=== PATIENT | male | born 1990 | race Caucasian/White ===

== ENCOUNTER 2019-09-29 15:08 | Emergency (ER) | payer SELFPAY ==
[~2019-09-29] VITALS: Ht 175 cm; Wt 90.7 kg
--- OUTSIDE RECORDS SUMMARY | 2019-09-29 15:12 | XMS REPORT | Continuity of Care Document ---
Author Author [facility] Organization [employer] Address Unknown Phone Unavailable Allergies There is no data. Medications There is no data. Problems There is no data. Procedures There is no data. Results There is no data. Encounters ACCT No. Visit Date/Time Discharge Status Pt. Type Provider Facility Loc./Unit Complaint [id number] 09/07/2019 11:15:00 09/07/2019 23:59: 59 CLS Outpatient PARAS ORALIA CAROLYNSaleem [facility] [id number] 10/11/2013 13:55:00 014 23:59:59 CLS Outpatient [id number] 09/29/2019 15:10:[address] Emergency ROSENDO GANDHI, ALISON Anderson Via [facility] ER N/V/D/FEVER
--- NOTE | 2019-09-29 15:41 | ED General ---
General Chief Complaint: Fever-Adult/Adol Stated Complaint: N/V/D/FEVER Source of Information: Patient Exam Limitations: No Limitations History of Present Illness Date Seen by Provider: Sep 29, 2019 Time Seen by Provider: 15:37 Initial Comments To ER with nausea vomiting diarrhea fever. This began Monday evening 09/27/19 at about 5 PM after eating [employer]. He urinated quite a bit that night and then awakened the next morning to notice some abdominal cramping and diarrhea. He developed a fever yesterday up to 101 and had 2 episodes of bloody stools today. He has some periumbilical abdominal pain but reports that is fairly mild. No cough no shortness of breath and no exposure to known coronavirus patients. How ever he is at the [place] [facility] [employer] [facility] in [place] and needs a COVID swab before he can return. Timing/Duration: 2-3 Days Severity: Moderate Associated Systoms: Fever/Chills Allergies and Home Medications Allergies Coded Allergies: No Known Drug Allergies (Unverified , 09/29/19) Patient Home Medication List Home Medication List Reviewed: Yes Review of Systems Review of Systems Constitutional: see HPI, chills, fever EENTM: see HPI Respiratory: see HPI; No cough, No dyspnea on exertion Gastrointestinal: abdominal pain, diarrhea Genitourinary: no symptoms reported Musculoskeletal: no symptoms reported Skin: no symptoms reported Psychiatric/Neurological: No Symptoms Reported Past Oibcfgk-Lcthpr-Gbrbgw Hx Patient Social History Recent Foreign Travel: No Contact w/Someone Who Travel: No Physical Exam Vital Signs Vital Signs - First Documented 09/29/19 15:25 Temp 38.3 Pulse 126 Resp 16 B/P (MAP) 147/88 (107) Pulse Ox 98 O2 Delivery Room Air Capillary Refill : Height, Weight, BMI Height: '" Weight: lbs. oz. kg; BMI Method: General Appearance: No Apparent Distress, WD/WN Eyes: Bilateral Eye Normal Inspection, Bilateral Eye PERRL, Bilateral Eye EOMI Neck: Full Range of Motion, Normal Inspection Respiratory: No Accessory Muscle Use, No Respiratory Distress Cardiovascular: Normal Peripheral Pulses, Tachycardia (rate of 1:15 to 120) Gastrointestinal: Normal Bowel Sounds, Non Tender (Minimal periumbilical tenderness), Soft Extremity: Normal Capillary Refill, Normal Inspection Neurologic/Psychiatric: Alert, Oriented x3 Skin: Normal Color, Warm/Dry Progress/Results/Core Measures Suspected Sepsis SIRS Temperature: Pulse: Respiratory Rate: Laboratory Tests 09/29/19 15:35: White Blood Count 7.2 Blood Pressure / Mean: Laboratory Tests 09/29/19 15:35: Creatinine 1.18, Platelet Count 182, Total Bilirubin 0.6 Results/Orders Lab Results Laboratory Tests Test 09/29/19 15:35 Range/Units White Blood Count 7.2 4.3-11.0 10^3/uL Red Blood Count 5.33 4.35-5.85 10^6/uL Hemoglobin 15.4 13.3-17.7 G/DL Hematocrit 45 40-54 % Mean Corpuscular Volume 85 80-99 FL Mean Corpuscular Hemoglobin 29 25-34 PG Mean Corpuscular Hemoglobin Concent 34 32-36 G/DL Red Cell Distribution Width 13.1 10.0-14.5 % Platelet Count 182 130-400 10^3/uL Mean Platelet Volume 10.5 H 7.4-10.4 FL Neutrophils (%) (Auto) 82 H 42-75 % Lymphocytes (%) (Auto) 11 L 12-44 % Monocytes (%) (Auto) 6 0-12 % Eosinophils (%) (Auto) 1 0-10 % Basophils (%) (Auto) 0 0-10 % Neutrophils # (Auto) 5.9 1.8-7.8 X 10^3 Lymphocytes # (Auto) 0.8 L 1.0-4.0 X 10^3 Monocytes # (Auto) 0.5 0.0-1.0 X 10^3 Eosinophils # (Auto) 0.1 0.0-0.3 10^3/uL Basophils # (Auto) 0.0 0.0-0.1 10^3/uL Sodium Level 138 135-145 MMOL/L Potassium Level 3.8 3.6-5.0 MMOL/L Chloride Level 107 98-107 MMOL/L Carbon Dioxide Level 21 21-32 MMOL/L Anion Gap 10 5-14 MMOL/L Blood Urea Nitrogen 13 7-18 MG/DL Creatinine 1.18 0.60-1.30 MG/DL Estimat Glomerular Filtration Rate > 60 BUN/Creatinine Ratio 11 Glucose Level 148 H 70-105 MG/DL Calcium Level 9.0 8.5-10.1 MG/DL Corrected Calcium 8.8 8.5-10.1 MG/DL Total Bilirubin 0.6 0.1-1.0 MG/DL Aspartate Amino Transf (AST/SGOT) 78 H 5-34 U/L Alanine Aminotransferase (ALT/SGPT) 48 0-55 U/L Alkaline Phosphatase 78 40-136 U/L Total Protein 7.3 6.4-8.2 GM/DL Albumin 4.3 3.2-4.5 GM/DL My Orders Orders - PAL JENNINGS APRN Ibuprofen Tablet (Motrin Tablet) (09/29/19 15:45) Acetaminophen Tablet (Tylenol Tablet) (09/29/19 15:45) Lactated Ringers (Lr 1000 Ml Iv Solution (09/29/19 15:45) Coronavirus Sars-Cov-2 So 2018 (09/29/19 15:36) Cbc With Automated Diff (09/29/19 15:36) Comprehensive Metabolic Panel (09/29/19 15:36) Ed Iv/Invasive Line Start (09/29/19 15:36) Ua Culture If Indicated (09/29/19 15:36) Ct Abdomen/Pelvis W (09/29/19 15:36) Iohexol Injection (Omnipaque 350 Mg/Ml 1 (09/29/19 15:45) Received Contrast (Hold Metformin- Contr (09/29/19 15:45) Sodium Chloride Flush (Catheter Flush Sy (09/29/19 15:45) Ns (Ivpb) (Sodium Chloride 0.9% Ivpb Bag (09/29/19 15:45) Stool Culture (09/29/19 15:58) Fentanyl Injection (Sublimaze Injection (09/29/19 17:00) Medications Given in ED Current Medications Medications Dose Ordered Sig/Chely Route Start Time Stop Time Status Last Admin Dose Admin Acetaminophen 1,000 mg ONCE ONCE PO 09/29/19 15:45 09/29/19 15:46 DC 09/29/19 15:48 1,000 MG Ibuprofen 800 mg ONCE ONCE PO 09/29/19 15:45 09/29/19 15:46 DC 09/29/19 15:48 800 MG Iohexol 100 ml ONCE ONCE IV 09/29/19 15:45 09/29/19 15:46 DC 09/29/19 16:07 100 ML Sodium Chloride 10 ml NEEDED PRN IV 09/29/19 15:45 09/29/19 16:07 10 ML Sodium Chloride 100 ml ONCE ONCE IV 09/29/19 15:45 09/29/19 15:46 DC 09/29/19 16:07 80 ML Vital Signs/I&O 09/29/19 15:25 Temp 38.3 Pulse 126 Resp 16 B/P (MAP) 147/88 (107) Pulse Ox 98 O2 Delivery Room Air Capillary Refill : Departure Communication (Admissions) 1709-spoke with Dr. Thornton, he agrees with plan of care. The CT mentions concern of a bleeding ulcer however patient's symptoms are not consistent with peptic ulcer disease, his hemoglobin is stable and his stools or bright red blood, more consistent with a lower GI source of bleeding. Infectious colitis is much more consistent with his symptoms then peptic ulcer disease. I'll put him on Zithromax, a culture of stool has been collected. We'll have him follow up with Dr. Thornton tomorrow in the clinic. Impression Primary Impression: Infectious colitis, enteritis and gastroenteritis Disposition: HOME, SELF-CARE Condition: Stable Departure-Patient Inst. Decision time for Depature: 15:39 Referrals: SUZIE THORNTON DO UNKNOWN (PCP) Primary Care Physician Patient Instructions: Diarrhea in Adolescents and Adults Add. Discharge Instructions: 1. Get some Pedialyte in order to stay hydrated, constantly be sipping on some of this. Tylenol and ibuprofen for fever control. Return to ER for any worsening. The coronavirus swab should be back within about 2-[address] Thornton tomorrow to make an appointment to be seen All discharge instructions reviewed with patient and/or family. Voiced understanding. Scripts Azithromycin (Azithromycin) 250 Mg Tablet 250 MG PO DAILY, #4 TAB 0 Refills Prov: PAL JENNINGS APRN 09/29/19 Work/School Note: Work Release Form Date Seen in the Emergency Department: Sep 29, 2019 Return to Work: Oct 04, 2019 Copy Copies To 1: SUZIE THORNTON PETER J APRN Sep 29, 2019 15:41
[2019-09-29 15:45] LABS: BASOPHILS % (AUTO) 0 % (0-10); EOSINOPHILS # (AUTO) 0.1 10^3/uL (0.0-0.3); EOSINOPHILS % (AUTO) 1 % (0-10); HEMATOCRIT 45 % (40-54); HEMOGLOBIN 15.4 G/DL (13.3-17.7); LYMPHOCYTES # (AUTO) 0.8 X 10^3 (1.0-4.0); LYMPHOCYTES % (AUTO) 11 % (12-44); MEAN CORPUSCULAR HEMOGLOBIN 29 PG (25-34); MEAN CORPUSCULAR HGB CONC 34 G/DL (32-36); MEAN CORPUSCULAR VOLUME 85 FL (80-99); MEAN PLATELET VOLUME 10.5 FL (7.4-10.4); MONOCYTES # (AUTO) 0.5 X 10^3 (0.0-1.0); MONOCYTES % (AUTO) 6 % (0-12); NEUTROPHILS # (AUTO) 5.9 X 10^3 (1.8-7.8); NEUTROPHILS % (AUTO) 82 % (42-75); PLATELET COUNT 182 10^3/uL (130-400); RED CELL DISTRIBUTION WIDTH 13.1 % (10.0-14.5); WHITE BLOOD COUNT 7.2 10^3/uL (4.3-11.0)
[2019-09-29] MEDS ORDERED: NS 100 ML (IVPB) BAG IV ONE (15:45)
[2019-09-29] MEDS ORDERED: IBUPROFEN 800 MG (MOTRIN) TAB PO ONE (15:45)
[2019-09-29] MEDS ORDERED: ACETAMINOPHEN 500 MG TAB (TYLENOL) PO ONE (15:45)
[2019-09-29] MEDS ORDERED: CATHETER FLUSH 10 ML SYR IV PRN (15:45)
[2019-09-29] MEDS ORDERED: IOHEXOL 350 MG/ML 100 ML (OMNIPAQUE 350) VIAL IV ONE (15:45)
[2019-09-29] MEDS ORDERED: LACTATED RINGERS 1,000 ML IV SCH (15:45)
[2019-09-29] MEDS ORDERED: HOLD METFORMIN - RECEIVED CONTRAST 20 ML VIAL IV SCH (15:45)
[2019-09-29 15:51] LABS: ALBUMIN 4.3 GM/DL (3.2-4.5); CHLORIDE 107 MMOL/L (98-107); POTASSIUM 3.8 MMOL/L (3.6-5.0); SODIUM 138 MMOL/L (135-145)
[2019-09-29 15:53] LABS: GLUCOSE 148 MG/DL (70-105)
[2019-09-29 15:54] LABS: TOTAL PROTEIN 7.3 GM/DL (6.4-8.2)
[2019-09-29 15:55] LABS: CARBON DIOXIDE 21 MMOL/L (21-32)
[2019-09-29 15:56] LABS: BILIRUBIN,TOTAL 0.6 MG/DL (0.1-1.0)
[2019-09-29 15:57] LABS: ALKALINE PHOSPHATASE 78 U/L (40-136); CREATININE SERUM 1.18 MG/DL (0.60-1.30); GFR ESTIMATED > 60
[2019-09-29 15:58] LABS: BUN/CREATININE RATIO 11
[2019-09-29 16:00] LABS: ALANINE AMINOTRANSFERASE 48 U/L (0-55)
--- NOTE | 2019-09-29 16:34 | Diagnostic Imaging Report ---
PROCEDURE: CT abdomen and pelvis with contrast. TECHNIQUE: Multiple contiguous axial images were obtained through the abdomen and pelvis after administration of intravenous contrast. Auto Exposure Controls were utilized during the CT exam to meet ALARA standards for radiation dose reduction. INDICATION: Bloody diarrhea, abdominal pain and fever x 2 days. CORRELATION STUDY: None. FINDINGS: LOWER THORAX: Clear. LIVER: Unremarkable. GALLBLADDER: Contracted maybe owing to recent meal. No definitive calcification or significant bile ductal dilatation. SPLEEN: Unremarkable. PANCREAS: Unremarkable. ADRENAL GLANDS: Unremarkable. KIDNEYS: Normal configuration. No calcification or obstruction. ABDOMINAL AORTA: Unremarkable, nonaneurysmal. A few small shotty subcentimeter central retroperitoneal and scattered mesenteric lymph nodes. GASTROINTESTINAL TRACT: Stomach is rather significantly distended with likely fluid with some additional gastric contents. There is nondependent gas at the duodenal bulb. Additionally, there is some adjacent ill-defined high density. This could potentially reflect ingested contents or vascular blush. The small bowel does demonstrate a few segment areas of suggested wall thickening; however, no findings to suggest underlying obstruction. Colon is largely collapsed. However, there does appear to be abnormal wall thickening through a large portion of the ascending and transverse colon into the proximal descending colon. The appendix is very slightly prominent but without definitive inflammatory change. No abdominal ascites and/or free air. URINARY BLADDER: Largely decompressed. REPRODUCTIVE: Prostate gland unremarkable. OSSEOUS STRUCTURES: No acute abnormality. OTHER: None. IMPRESSION: 1. Fairly significant thickening of a large portion of the colon from the level of the cecum through the descending colon. Some of this is owing to its decompressed state but does, however, suggest an underlying colitis. It could be either ischemic or inflammatory in nature. There may be mild associated enteritis. No obstruction. 2. Stomach is noted to be distended. There is nondependent gas at the duodenal bulb. There is question of abnormal contrast blush in this area. The possibility of bleeding ulceration is not excluded. Dictated by: Dictated on workstation # [id number]
[2019-09-29] MEDS ORDERED: fentaNYL INJECTION 100 MCG/2 ML AMP IVP ONE (17:00)
[2019-09-29] MEDS ORDERED: AZIT250T12 PO (17:10)
[2019-09-29] MEDS ORDERED: PANTOPRAZOLE 40 MG (PROTONIX) VIAL IV ONE (17:15)
[2019-09-29] MEDS ORDERED: AZITHROMYCIN 250 MG TAB (ZITHROMAX) PO ONE (17:16)
[2019-09-29 17:31] VITALS: BP 117/69
[2019-09-30] MEDS ORDERED: AZITHROMYCIN 250 MG TAB (ZITHROMAX) PO SCH (09:00)
== END 2019-09-29 17:31 | disposition home or self-care (01) ==
LOC: EDUNIT# 15:08 → ER 15:10
DX: A09 Infectious gastroenteritis and colitis, unspecified (principal)
CPT/HCPCS: 74177; 80053; 85025; 87015; 87045; 87046; 87077; 87181; 87899; 99284; U0002; 36415; 87635

== ENCOUNTER 2021-03-28 01:13 | Emergency (ER) | payer OTHER ==
[~2021-03-28] VITALS: Ht 175.3 cm; Wt 90.7 kg
[~2021-03-28 01:13] MED LIST: AZIT250T12 PO
[2021-03-28] MEDS ORDERED: TETANUS,DIPTH,PERTUSS P/F (BOOSTRIX) 0.5 ML VIAL IM ONE (01:45)
--- NOTE | 2021-03-28 01:49 | ED Fall/Injury ---
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 C/O WOUNDS TO BOTH HANDS, AND PAIN TO LEFT 4TH FINGER NO PARESTHESIAS OR MOTOR DEFICITS IS NOT SURE IF HE HIT HIS HEAD OR NOT, BUT DID NOT HAVE LOSS OF CONSCIOUSNESS, AND DOES NOT HAVE A HEADACHE NO NECK OR BACK PAIN NO LOWER EXTREMITY INJURIES NO CHEST OR ABDOMINAL PAIN LAST TETANUS VACCINE IS UNKNOWN PT HAS NOT HAD COVID OR FLU VACCINES PCP: DR. AGUILAR--HAS ONLY SEEN ONCE, OVER A YEAR AGO, TO ESTABLISH CARE. DID NOT HAVE A DR PRIOR TO THAT Allergies and Home Medications Allergies Coded Allergies: No Known Drug Allergies (Unverified , 09/29/19) Patient Home Medication List Home Medication List Reviewed: Yes Azithromycin (Azithromycin) 250 Mg Tablet, 250 MG PO DAILY Prescribed by: PAL JENNINGS on 09/29/19 1710 Review of Systems Review of Systems Constitutional: no symptoms reported Eyes: No Symptoms Reported Ears, Nose, Mouth, Throat: no symptoms reported Respiratory: no symptoms reported Cardiovascular: no symptoms reported Gastrointestinal: no symptoms reported Genitourinary: no symptoms reported Musculoskeletal: see HPI Skin: see HPI Psychiatric/Neurological: No Symptoms Reported Past Xpxwmze-Vucflm-Auybrb Hx Patient Social History Tobacco Use?: Yes Tobacco type used: Cigarettes Smoking Status: Current Someday Smoker Substance use?: No Alcohol Use?: Yes Alcohol Frequency: Once in a while Immunizations Up To Date Tetanus Booster (TDap): Unknown Past Medical History Surgeries: Yes Orthopedic, Tonsillectomy Respiratory: No Cardiac: No Neurological: No Genitourinary: No Gastrointestinal: No Musculoskeletal: No Endocrine: No HEENT: Yes (TONSILLECTOMY) Tonsilitis Cancer: No Psychosocial: No Integumentary: No Physical Exam Vital Signs Vital Signs - First Documented 03/28/21 01:29 Temp 36.5 Pulse 107 Resp 16 B/P (MAP) 145/108 (120) Pulse Ox 100 O2 Delivery Room Air Capillary Refill : Height, Weight, BMI Height: '" Weight: lbs. oz. kg; 29.00 BMI Method: General Appearance: WD/WN, no apparent distress HEENT: PERRL/EOMI, normal ENT inspection, TMs normal, pharynx normal, other (FAINT ERYTHEMA TO LEFT FOREHEAD, BUT NO SWELLING OR TENDERNESS) Neck: non-tender, full range of motion, supple, normal inspection Cardiovascular: normal peripheral pulses, regular rate, rhythm, no murmur Respiratory: chest non-tender, normal breath sounds, no respiratory distress, no accessory muscle use Gastrointestinal: non tender, soft Back: normal inspection, no CVA tenderness, no vertebral tenderness Extremities: normal capillary refill, other (ABRASIONS TO RIGHT PALM AND THUMB, AND TO LEFT THUMB, MIDDLE FINGER AND RING FINGER. HAS SOME TENDERNESS AND SWELLING TO PIP JOINT OF LEFT RING FINGER. MOTOR/SENSORY/VASCULAR INTACT. NO LOWER EXTREMITY TENDERNESS. 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, no motor/sensory deficits, alert, normal mood/affect, oriented x 3 Skin: normal color, warm/dry Monroe Coma Score Best Eye Response: (4) Open Spontaneously Best Verbal Response: (5) Oriented Best Motor Response: (6) Obeys Commands Monroe Total: 15 Progress/Results/Core Measures Results/Orders My Orders Orders - MAURILIO HERNANDEZ DO Hand, Left, 3 Views (03/28/21 01:38) Hand, Right, 3 Views (03/28/21 01:38) Wound Dressing-Ed (03/28/21 01:38) Dipht,Pertuss(Acell),Tet Adult (Boostrix (03/28/21 01:45) Mupirocin Ointment (Bactroban Ointment (03/28/21 09:00) Vital Signs/I&O 03/28/21 03/28/21 01:29 02:16 Temp 36.5 36.5 Pulse 107 107 Resp 16 16 B/P (MAP) 145/108 (120) 145/108 Pulse Ox 100 100 O2 Delivery Room Air Room Air Progress Progress Note : Progress Note WOUNDS CLEANSED AND DRESSED PT DECLINES DTP VACCINE AT THIS TIME, AND STATES HE WILL GET ONE AT THE [facility] ON MONDAY. Diagnostic Imaging Comments XRAYS BILATERAL HANDS--NO ACUTE PROCESS, PENDING RADIOLOGIST REVIEW Reviewed: Reviewed by Me Departure Impression Primary Impression: Fall injury while running Additional Impressions: BILATERAL HAND ABRASIONS Sprain of finger of left hand Disposition: HOME, SELF-CARE Condition: Stable Departure-Patient Inst. Decision time for Depature: 02:00 Referrals: [facility] ROSA AGUILAR DO (PCP/Family) Primary Care Physician Patient Instructions: Finger Sprain ED, General Trauma, Adult ED, Skin Abr asions Add. Discharge Instructions: ICE TO SORE AREAS AT 20 MINUTE INTERVALS ELEVATE HANDS MUCH POSSIBLE TYLENOL AND MOTRIN NEEDED FOR PAIN CLEAN WOUNDS TWICE A DAY WITH ANTIBACTERIAL SOAP AND WATER, APPLY ANTIBIOTIC OI NTMENT AND FRESH DRESSING TWICE A DAY FOLLOW UP WITH [facility] ON MONDAY FOR FURTHER CARE. FOLLOW UP WITH [facility] ON MONDAY TO GET TETANUS VACCINE All discharge instructions reviewed with patient and/or family. Voiced underst anding. MAURILIO HERNANDEZ DO Mar 28, 2021 01:49
[2021-03-28 02:16] VITALS: BP 145/108
--- NOTE | 2021-03-28 07:32 | Diagnostic Imaging Report ---
INDICATION: Hand pain COMPARISON: Imaging of the right hand from same date TECHNIQUE: 3 radiographs of the left hand dated 03/28/2021 FINDINGS: A watch is noted overlying the wrist which limits evaluation of the underlying structures. This includes the base of the hand. No acute fracture or dislocation. No destructive osseous process. No suspicious radiopaque foreign body. IMPRESSION: No acute osseous abnormality within the limits of the exam. Dictated by: Dictated on workstation # [id number]
--- NOTE | 2021-03-28 07:34 | Diagnostic Imaging Report ---
INDICATION: Hand pain COMPARISON: Radiographs of the left hand from the same date. TECHNIQUE: 3 radiographs of the right hand dated 03/28/2021 FINDINGS: No acute fracture or dislocation. No destructive osseous process. Carpal alignment is well-maintained. No suspicious radiopaque foreign body. IMPRESSION: No acute osseous abnormality. Dictated by: Dictated on workstation # [id number]
[2021-03-28] MEDS ORDERED: MUPIROCIN 2% OINT 22 GM (BACTROBAN) TUBE TOP SCH (09:00)
== END 2021-03-28 02:16 | disposition home or self-care (01) ==
LOC: EDUNIT# 01:13 → ER 01:18
DX: S63.92XA Sprain of unspecified part of left wrist and hand, initial encounter (principal); S60.311A Abrasion of right thumb, initial encounter; S60.413A Abrasion of left middle finger, initial encounter; S60.415A Abrasion of left ring finger, initial encounter; F17.210 Nicotine dependence, cigarettes, uncomplicated; W01.0XXA Fall on same level from slipping, tripping and stumbling without subsequent striking against object, initial encounter
CPT/HCPCS: 73130